=== PATIENT | male | born 1970 | race Two or more races ===

== ENCOUNTER 2023-06-01 11:11 | Inpatient (IN) | payer SELFPAY ==
[~2023-06-01] VITALS: Ht 167.6 cm; Wt 66.9 kg
[2023-06-01] VITALS (27 sets, daily range): BP systolic 119–149; BP diastolic 83–98; PULSE 58–102; RESP 14–19; TEMP 97.5–98.6; O2SAT 94–100
[2023-06-01] MEDS: SODIUM CHLORIDE 0.9% 1,000 ML IVB ONE (12:06)
[2023-06-01] MEDS: LORazepam 2MG/ML-1ML VIAL IV ONE ×3 (12:09→13:28)
[2023-06-01] MEDS: IOHEXOL 300 MG/ML 100ML BOTTLE IJ ONE (12:10)
[2023-06-01 12:27] LABS: Urine Bacteria FEW /hpf (None Seen); Urine Blood 1+ /uL (Negative); Urine Clarity HAZY (Clear); Urine Color Yellow (Yellow); Urine Hyaline Cast MOD /lpf (0 - 2); Urine Mucus FEW (None Seen); Urine Protein, UAD 3+ (Negative); Urine Specific Gravity 1.034 (1.001-1.035); Urine WBC 8 /hpf (0 - 3)
[2023-06-01 12:37] LABS: Basophils # (auto) 0.1 10 ^3/uL (0-0.2); Basophils % (auto) 1.3 % (0.0-2.0); Eosinophils # (auto) 0.1 10 ^3/uL (0-0.8); Eosinophils % (auto) 1.1 % (0.0-7.0); Hematocrit 46.4 % (41.0-53.0); Hemoglobin 15.7 g/dL (13.5-17.5); Lymphocytes # (auto) 0.6 10 ^3/uL (0.4-5.4); Lymphocytes % (auto) 10.5 % (10.0-50.0); Mean Corpuscular Hemoglobin 34.1 pg (28.0-32.0); Mean Corpuscular Hgb Conc. 33.8 g/dL (32.0-36.0); Mean Corpuscular Volume 100.8 fL (80.0-100.0); Monocytes # (auto) 0.7 10 ^3/uL (0-1.3); Neutrophils # (auto) 3.9 10 ^3/uL (1.6-8.6); Neutrophils % (auto) 73.1 % (37.0-80.0); Nucleated Red Blood Cells % 0.2 %; Red Blood Cells 4.61 10^6/uL (4.5-5.90); Red Cell Distribution Width 12.8 % (11.8-14.3); White Blood Cell 5.3 10^3/uL (4.4-10.8)
[2023-06-01 12:38] LABS: INR 1.05 (0.9-1.15)
[2023-06-01] MEDS: diphenhdrAMINE HCL 50 MG/1 ML VL IV ONE (12:38)
[2023-06-01] MEDS: levETIRAcetam 1000 mg/100ml 100 ML IV ONE (12:43)
[2023-06-01 12:45] LABS: Amphetamine Screen, Urine Neg (NEGATIVE); Barbiturate Scree,Urine Neg (NEGATIVE); Benzodiazephine Screen, Urine Neg (NEGATIVE); Cannabinoid Screen, Urine Neg (NEGATIVE); Cocaine Screen, Urine Neg (NEGATIVE); Opiate Scree,Urine Neg (NEGATIVE); Phencyclidine Screen, Urine Neg (NEGATIVE)
[2023-06-01 12:46] LABS: Alanine Aminotransferase 148 U/L (7-40); Albumin 4.9 g/dL (3.2-4.8); Alkaline Phosphatase 78 U/L (46-116); Anion Gap 6 (5-15); Aspartate Aminotransferase 127 U/L (13-40); BUN/Creatinine Ratio 21.4 (10.0-20.0); Blood Alcohol < 3.0 mg/dL (<10); Blood Urea Nitrogen 18 mg/dL (9-23); Calcium 9.9 mg/dL (8.5-10.1); Carbon Dioxide 29 mmol/L (20-30); Chloride 102 mmol/L (98-107); Creatine Kinase IFCC 365 U/L (46-171); Glucose 142 mg/dL (74-106); Potassium 3.3 mmol/L (3.5-5.1); Sodium 137 mmol/L (136-145)
[2023-06-01 12:47] LABS: Bilirubin, Total 1.4 mg/dL (0.2-1.0); Total Protein 7.6 g/dL (5.7-8.2)
[2023-06-01] MEDS: PANTOPRAZOLE 40 MG/10 ML VIAL INJ IV ONE ×2 (12:51→15:10)
[2023-06-01 12:58] LABS: Magnesium 2.4 mg/dL (1.6-2.6)
[2023-06-01] MEDS: SUCCINYLCHOLINE CHLORIDE 20 MG/ML 10ML VIAL IV ONE ×2 (13:50→14:00)
[2023-06-01] MEDS: ETOMIDATE (2MG/ML) 20ML VIAL IV ONE ×2 (13:50→14:00)
[2023-06-01] MEDS: PROPOFOL 100 ML IV ONE ×2 (13:53→23:06)
[2023-06-01] MEDS: PROPOFOL 100 ML IV SCH (13:55)
[2023-06-01] MEDS: MIDAZOLAM DRIP 50 mg/50mL 50 ML IV SCH ×2 (14:00→14:05)
[2023-06-01] MEDS: MIDAZOLAM DRIP 50 mg/50mL 50 ML IV ONE ×3 (14:00→23:06)
[2023-06-01] MEDS ORDERED: PHENobarbital SODIUM INJ 600 MG in SODIUM CHL 0.9% 100 ML IV ONE (14:00)
[2023-06-01] MEDS: PHENobarbital SODIUM INJ 600 MG in SODIUM CHL 0.9% 100 ML IV ONE (14:42)
[2023-06-01 14:59] LABS: Base Excess -1.1 mmol/L (-2.0-2.0)
[2023-06-01] MEDS ORDERED: SODIUM CHLORIDE 0.9% 1,000 ML IV SCH (15:15)
[2023-06-01] MEDS ORDERED: DOCUSATE SOD 100 MG CAP PO PRN ×2 (15:15→15:30)
[2023-06-01] MEDS ORDERED: ONDANSETRON HCL 4 MG/2 ML VIAL IV PRN ×2 (15:15→15:30)
[2023-06-01] MEDS ORDERED: POTASSIUM CHL 20MEQ/100ML 100 ML IV SCH (15:15)
[2023-06-01] MEDS ORDERED: DEXTROSE (50%) 50ML SYRG IV PRN ×2 (15:15→15:30)
[2023-06-01] MEDS ORDERED: ENOXAPARIN SOD 40 MG/0.4 ML SYRINGE SC SCH (15:15)
[2023-06-01] MEDS: SODIUM CHLORIDE 0.9% 1,000 ML IV SCH (16:34)
[2023-06-01] MEDS: POTASSIUM CHL 20MEQ/100ML 100 ML IV SCH (16:34)
[2023-06-01] MEDS ORDERED: ACCU-CHEK COMFORT CURVE STRIP VI SCH (18:00)
[2023-06-01] MEDS ORDERED: FOLIC ACID 1 MG, MAGNESIUM SULF SDV 50% 8 MEQ, MULTIPLE VITAMIN 10 ML, THIAMINE INJ 100... INJ SCH ×2 (18:00)
[2023-06-01] MEDS: InsuLIN REG 1unit/0.01ml Soln (100units/ml) SC SCH (18:00)
[2023-06-01] MEDS ORDERED: InsuLIN REG 1unit/0.01ml Soln (100units/ml) SC SCH (18:00)
[2023-06-01] MEDS: FOLIC ACID 1 MG, MAGNESIUM SULF SDV 50% 8 MEQ, MULTIPLE VITAMIN 10 ML, THIAMINE INJ 100... INJ SCH (18:06)
[2023-06-01] MEDS: ACCU-CHEK COMFORT CURVE STRIP VI SCH (18:20)
[2023-06-02] VITALS (77 sets, daily range): BP systolic 116–177; BP diastolic 78–96; PULSE 58–93; RESP 14–21; TEMP 97.9–100.2; O2SAT 98–100
[2023-06-02 03:47] LABS: Basophils # (auto) 0.1 10 ^3/uL (0-0.2); Basophils % (auto) 1.4 % (0.0-2.0); Eosinophils # (auto) 0.2 10 ^3/uL (0-0.8); Hematocrit 37.7 % (41.0-53.0); Hemoglobin 12.5 g/dL (13.5-17.5); Lymphocytes # (auto) 0.8 10 ^3/uL (0.4-5.4); Lymphocytes % (auto) 17.5 % (10.0-50.0); Mean Corpuscular Hgb Conc. 33.2 g/dL (32.0-36.0); Mean Corpuscular Volume 102.3 fL (80.0-100.0); Monocytes # (auto) 0.6 10 ^3/uL (0-1.3); Monocytes % (auto) 13.3 % (0.0-12.0); Neutrophils # (auto) 2.9 10 ^3/uL (1.6-8.6); Neutrophils % (auto) 63.8 % (37.0-80.0); Red Blood Cells 3.68 10^6/uL (4.5-5.90); Red Cell Distribution Width 13.1 % (11.8-14.3); White Blood Cell 4.6 10^3/uL (4.4-10.8)
[2023-06-02 04:09] LABS: Alanine Aminotransferase 121 U/L (7-40); Albumin 3.4 g/dL (3.2-4.8); Alkaline Phosphatase 50 U/L (46-116); Anion Gap 5 (5-15); Aspartate Aminotransferase 118 U/L (13-40); BUN/Creatinine Ratio 14.9 (10.0-20.0); Bilirubin, Total 1.3 mg/dL (0.2-1.0); Carbon Dioxide 23 mmol/L (20-30); Chloride 111 mmol/L (98-107); Glucose 90 mg/dL (74-106); Potassium 2.9 mmol/L (3.5-5.1); Sodium 139 mmol/L (136-145); Total Protein 5.8 g/dL (5.7-8.2)
[2023-06-02 04:14] LABS: Blood Urea Nitrogen 7 mg/dL (9-23)
[2023-06-02] MEDS: POTASSIUM CHL 20MEQ/100ML 100 ML IV SCH (04:50)
[2023-06-02] MEDS: MIDAZOLAM DRIP 50 mg/50mL 50 ML IV SCH (04:50)
[2023-06-02] MEDS: LORazepam 2MG/ML-1ML VIAL ONE (05:25)
[2023-06-02] MEDS ORDERED: LORazepam 2MG/ML-1ML VIAL IV PRN ×2 (05:30→21:15)
[2023-06-02] MEDS ORDERED: levETIRAcetam 1000 mg/100ml 100 ML IV SCH (05:30)
[2023-06-02] MEDS: PROPOFOL 100 ML IV SCH (06:25)
[2023-06-02 08:28] LABS: Base Excess -2.5 mmol/L (-2.0-2.0)
[2023-06-02] MEDS ORDERED: cefTRIAXone 1GM/50ML D5W 50 ML IV SCH (09:00)
[2023-06-02] MEDS: levETIRAcetam 1000 mg/100ml 100 ML IV SCH (09:28)
[2023-06-02] MEDS: PANTOPRAZOLE 40 MG/10 ML VIAL INJ IV SCH (09:28)
[2023-06-02] MEDS: cefTRIAXone 1GM/50ML D5W 50 ML IV SCH (09:28)
[2023-06-02] MEDS: ENOXAPARIN SOD 40 MG/0.4 ML SYRINGE SC SCH (09:29)
[2023-06-02] MEDS ORDERED: PANTOPRAZOLE 40 MG/10 ML VIAL INJ IV SCH (10:00)
[2023-06-02] MEDS: fentaNYL Drip 2500mCg/250mlNS 250 ML IV SCH (15:03)
[2023-06-02] MEDS: SOD CHL 0.9%/ KCL 40MEQ 1,000 ML IV SCH (15:04)
[2023-06-02] MEDS: hydrALAZINE HCL 20 MG/ML VL IV PRN (21:56)
[2023-06-03] VITALS (48 sets, daily range): BP systolic 123–181; BP diastolic 79–104; PULSE 57–121; RESP 12–22; TEMP 98.2–100.8; O2SAT 72–100
[2023-06-03 04:05] LABS: Anion Gap 6 (5-15); Carbon Dioxide 26 mmol/L (20-30); Chloride 106 mmol/L (98-107); Potassium 3.2 mmol/L (3.5-5.1); Sodium 138 mmol/L (136-145)
[2023-06-03 04:06] LABS: Calcium 8.6 mg/dL (8.7-10.4)
[2023-06-03 04:11] LABS: Glucose 74 mg/dL (74-106)
[2023-06-03 04:19] LABS: BUN/Creatinine Ratio 12.5 (10.0-20.0); Blood Urea Nitrogen < 5 mg/dL (9-23)
[2023-06-03 07:55] LABS: Base Excess 0.1 mmol/L (-2.0-2.0)
[2023-06-03] MEDS: THIAMINE 100mg/ml INJ (200mg/2ml VIAL) IV SCH (09:49)
[2023-06-03] MEDS: POTASSIUM CHLORIDE 40 MEQ, LIDOCAINE 1% (LOCAL ANESTH.) 4 ML in SODIUM CHL 0.9% 250 ML IV ONE (09:49)
[2023-06-03] MEDS: FOLIC ACID 1 MG in D5W 5% 50 ML INJ SCH (10:00)
[2023-06-03] MEDS: chlordiazePOXIDE HCL 25 MG CAP PO SCH (11:23)
[2023-06-03 12:21] LABS: Base Excess -0.1 mmol/L (-2.0-2.0)
[2023-06-03] MEDS ORDERED: LORazepam 2MG/ML-1ML VIAL IV PRN (16:45)
[2023-06-03] MEDS: LORazepam 2MG/ML-1ML VIAL IV PRN (16:53)
[2023-06-04] VITALS (9 sets, daily range): BP systolic 108–122; BP diastolic 64–82; PULSE 72–112; RESP 16–18; TEMP 98.4–99.5; O2SAT 94–98
[2023-06-04 06:33] LABS: Basophils # (auto) 0.1 10 ^3/uL (0-0.2); Basophils % (auto) 0.9 % (0.0-2.0); Eosinophils # (auto) 0.1 10 ^3/uL (0-0.8); Eosinophils % (auto) 2.2 % (0.0-7.0); Hemoglobin 14.4 g/dL (13.5-17.5); Lymphocytes % (auto) 15.3 % (10.0-50.0); Mean Corpuscular Hemoglobin 34.4 pg (28.0-32.0); Mean Corpuscular Hgb Conc. 33.4 g/dL (32.0-36.0); Mean Corpuscular Volume 102.9 fL (80.0-100.0); Monocytes % (auto) 16.6 % (0.0-12.0); Neutrophils # (auto) 4.1 10 ^3/uL (1.6-8.6); Nucleated Red Blood Cells % 0.2 %; Red Blood Cells 4.18 10^6/uL (4.5-5.90); Red Cell Distribution Width 12.8 % (11.8-14.3); White Blood Cell 6.3 10^3/uL (4.4-10.8)
[2023-06-05] VITALS (7 sets, daily range): BP systolic 115–141; BP diastolic 72–93; PULSE 68–96; RESP 16–20; TEMP 98.3–98.9; O2SAT 95–99
[2023-06-05 06:41] LABS: Chloride 106 mmol/L (98-107); Potassium 3.4 mmol/L (3.5-5.1); Sodium 137 mmol/L (136-145)
[2023-06-05 06:42] LABS: Anion Gap 6 (5-15); Carbon Dioxide 25 mmol/L (20-30)
[2023-06-05 06:43] LABS: Calcium 9.4 mg/dL (8.5-10.1)
[2023-06-05 06:47] LABS: BUN/Creatinine Ratio 14.5 (10.0-20.0); Blood Urea Nitrogen 8 mg/dL (9-23); Glucose 110 mg/dL (74-106)
[2023-06-05] MEDS: POTASSIUM EFFERVESENT TAB 25 MEQ PO ONE (12:45)
[2023-06-06 02:27] VITALS: BP 131/74; PULSE 82; RESP 20; TEMP 98.3; O2SAT 96
[2023-06-06] MEDS ORDERED: LEVE500T40 PO (02:43)
[2023-06-06] MEDS ORDERED: KEP500T PO (13:23)
== END 2023-06-06 03:07 | disposition home or self-care (01) | DRG 100 ==
LOC: EDBD 11:11 → ER 11:11 → OVERFLOW 15:11 → ER 15:27 → ICU WEST 19:04 → TELE-WESTW 06-03 21:17
PROVIDERS: ADMIT Internal Medicine; ATTEND Nurse Practitioner Acute Care
PROC: 0BH17EZ Insertion of Endotracheal Airway into Trachea, Via Natural or Artificial Opening (ICD-10-PCS; principal; 2023-06-01)
PROC: 5A1945Z Respiratory Ventilation, 24-96 Consecutive Hours (ICD-10-PCS; 2023-06-01)
DX: G40.911 Epilepsy, unspecified, intractable, with status epilepticus (principal); G92.8 Other toxic encephalopathy; F10.231 Alcohol dependence with withdrawal delirium; E87.6 Hypokalemia; D69.6 Thrombocytopenia, unspecified; I10 Essential (primary) hypertension; R74.01 Elevation of levels of liver transaminase levels; Z79.899 Other long term (current) drug therapy
CPT/HCPCS: 31500; 36415; 36600; 70450; 70551; 71045; 80048; 80053; 80307; 80320; 81001; 82140; 82550; 82607; 82805; 82962; 83036; 83605; 83735; 84132; 84484; 85025; 85610; 85730; 87040; 87070; 87081; 87086; 87205; 93005; 94002; 94003; 95819; C9113; G0378; J0330; J1815; J2001; J2250; J2704; J3480; J7060